=== PATIENT | male | born 1965 | race Caucasian/White ===

== ENCOUNTER 2017-11-01 00:34 | Emergency (ER) | payer OTHER, BC ==
--- NOTE | 2017-11-01 00:48 | EDM.PDOC ---
ED HPI GENERAL MEDICAL PROBLEM - General Stated Complaint: RT ANKLE TWISTED Time Seen by Provider: 11/01/17 00:34 Source of Information: Reports: Patient, Other (coworker) History Limitations: Reports: No Limitations - History of Present Illness INITIAL COMMENTS - FREE TEXT/NARRATIVE: 52 years old w male came directly from work after he twisted his right ankle. Mechanism of injury is not exactly known at this time. Pt says, he can not bear weight on that ankle. He sprained his right ankle in the past. No other acute medical issues. BP 149/42 pulse 109 temp 36.6 RR 18 Pulse ox 100% on RA. Onset Date: 10/31/17 Onset Time: 23:00 Duration: Hour(s):, Getting Worse, Intermittent Location: Reports: Lower Extremity, Right (ankle) Quality: Reports: Ache, Burning, Dull, Pressure, Throbbing Severity: Moderate Improves with: Reports: Cold Therapy, Rest Worsens with: Reports: Movement Context: Reports: Other (twisting) Associated Symptoms: Reports: No Other Symptoms ankle right Pain Score (Numeric/FACES): 8 - Related Data Allergies Allergy/AdvReac Type Severity Reaction Status Date / Time No Known Allergies Allergy Verified 11/01/17 00:50 Home Meds: Home Meds NK [No Known Home Meds] 11/01/17 [History] Past Medical History Cardiovascular History: Reports: Other (See Below) Other Cardiovascular History: palpitations Social & Family History - Family History Family Medical History: Noncontributory Review of Systems - Review of Systems Review Of Systems: See Below Constitutional: Reports: No Symptoms Eyes: Reports: No Symptoms Ears: Reports: No Symptoms Nose: Reports: No Symptoms Mouth/Throat: Reports: No Symptoms Respiratory: Reports: No Symptoms Cardiovascular: Reports: No Symptoms GI/Abdominal: Reports: No Symptoms Genitourinary: Reports: No Symptoms Musculoskeletal: Reports: Joint Swelling (right ankle) Skin: Reports: No Symptoms Neurological: Reports: No Symptoms Psychiatric: Reports: No Symptoms ED EXAM, GENERAL - Physical Exam Exam: See Below Exam Limited By: No Limitations General Appearance: Alert, WD/WN, Mild Distress Eye Exam: Bilateral Eye: Normal Inspection Ears: Normal External Exam, Normal Canal Ear Exam: Bilateral Ear: Auricle Normal Nose: Normal Inspection, Normal Mucosa, No Blood Throat/Mouth: Normal Inspection, Normal Lips, Normal Gums, Normal Voice, No Airway Compromise Head: Atraumatic, Normocephalic Neck: Normal Inspection, Supple, Non-Tender, Full Range of Motion Respiratory/Chest: No Respiratory Distress, Lungs Clear, Normal Breath Sounds, No Accessory Muscle Use, Chest Non-Tender Cardiovascular: Normal Peripheral Pulses, Regular Rate, Rhythm, No Edema, No Gallop, No Murmur, No Rub Peripheral Pulses: 1+: Radial (L) GI/Abdominal: Normal Bowel Sounds, Soft, Non-Tender, No Organomegaly, No Abnormal Bruit, No Mass, Pelvis Stable (Male) Exam: Deferred Rectal (Males) Exam: Deferred Back Exam: Normal Inspection Extremities: Joint Swelling (right ankle swelling), Limited Range of Motion ( right ankle) Neurological: Alert, Oriented Psychiatric: Normal Affect, Normal Mood Skin Exam: Warm, Dry, Intact, Normal Color, No Rash Lymphatic: No Adenopathy Course - Vital Signs Text/Narrative:: 52 years old w male came directly from work after he twisted his right ankle. Mechanism of injury is not exactly known at this time. Pt says, he can not bear weight on that ankle. He sprained his right ankle in the past. No other acute medical issues. BP 149/42 pulse 109 temp 36.6 RR 18 Pulse ox 100% on RA. PE: 52 y.o.w.m came to the ed by wheelchair with swelling and deformity of his right ankle after he twisted it at work. Happened in the past. [employer] arrived stating Imaging: Right ankle: Soft tissue swelling, no fx or dislocation Tx: Ice, Toradol, ICE MAXWELL wrap, crutches Reexam: Improved. As per supervisor metal cans, Pt appears to look for a way out of work. Plan: D/C with instructions Last Recorded V/S: Last Vital Signs Temp 36.6 C 11/01/17 00:40 Pulse 106 H 11/01/17 00:40 Resp 16 11/01/17 00:40 BP 149/92 H 11/01/17 00:40 Pulse Ox 98 11/01/17 00:40 - Orders/Labs/Meds Orders: Active Orders 24 hr Category Date Time Status Ankle 2V Rt [CR] Stat Exams 11/01/17 00:48 Taken Ice Therapy [OM.PC] Routine Oth 11/01/17 00:48 Ordered Departure - Departure Time of Disposition: 01:12 Disposition: Home, Self-Care 01 Condition: Good Clinical Impression: Ankle sprain Qualifiers: Encounter type: initial encounter Involved ligament of ankle: unspecified ligament Laterality: right Qualified Code(s): S93.401A - Sprain of unspecified ligament of right ankle, initial encounter - Discharge Information Instructions: Ankle Sprain Referrals: Garrett Delarosa MD [Primary Care Provider] - Forms: ED Return to Work/School Form Additional Instructions: Rest, ICE and elevation, weight bearing to right leg as tolerated, Motrin for pain. Please f/u with your PMD in next 3 days, before returning back to work. Please come back if your symptoms get worse acutely - My Orders Last 24 Hours: My Active Orders 11/01/17 00:48 Ankle 2V Rt [CR] Stat Ice Therapy [OM.PC] Routine - Assessment/Plan Last 24 Hours: My Active Orders 11/01/17 00:48 Ankle 2V Rt [CR] Stat Ice Therapy [OM.PC] Routine
[2017-11-01 01:58] VITALS: BP 149/92
--- NOTE | 2017-11-03 11:55 | CR ---
INDICATION: Trauma, rolled ankle at work. RIGHT ANKLE: Three views of the right ankle revealed mild soft tissue swelling overlying the lateral malleolus. A fracture, dislocation, or other significant bone or joint abnormality was not identified. MTDD
== END 2017-11-01 01:40 | disposition home or self-care (01) ==
LOC: FB.ED 00:34
DX: S93.401A Sprain of unspecified ligament of right ankle, initial encounter (principal); X50.1XXA Overexertion from prolonged static or awkward postures, initial encounter
CPT/HCPCS: 73610-RT; 99000; 99283